=== PATIENT | male | born 1980 | race Two or more races ===

== ENCOUNTER 2016-11-24 16:00 | Emergency (ER) | payer BC ==
[2016-11-24 16:10] VITALS: BP 128/86
--- NOTE | 2016-11-24 16:41 | UC ---
Skin Complaint HPI - HPI Summary HPI Summary: LEFT (POPLITEAL FOSSA) KNEE WASP OR BEE STING. STIGER WAS REMOVED FROM SITE. INJURY BECAME RED AND SWOLLEN. NOW AREA IS GETTING WARM, SKIN TEXTURE IS BECOMING FIRMER, AND REDNESS IS SPREADING. NO HISTORY OF MRSA. NO FEVER. NO CALF PAIN OR SHORTNESS OF BREATH. - History of Current Complaint Chief Complaint: UCSkin Time Seen by Provider: 11/24/16 16:21 Stated Complaint: BUG BITE Hx Obtained From: Patient Onset/Duration: Sudden Onset, Lasting Days, Still Present Skin Exposure Onset/Duration: Days Ago Onset Severity: Mild Current Severity: Moderate Location: Discrete - LEFT POPLITEAL FOSSA Aggravating: Touch Alleviating: Nothing Associated Signs & Symptoms: Positive: Fever, Rash, Tenderness, Red Streaks Related History: Insect Bite/Sting, Possible Reaction to: Insect - Allergy/Home Medications Allergies/Adverse Reactions: Allergies Allergy/AdvReac Type Severity Reaction Status Date / Time Bee Venom Allergy Intermediate Swelling Verified 11/24/16 16:10 Review of Systems Constitutional: Negative Skin: Rash Eyes: Negative ENT: Negative Respiratory: Negative Cardiovascular: Negative Gastrointestinal: Negative Genitourinary: Negative Motor: Negative Neurovascular: Negative Musculoskeletal: Negative Neurological: Negative Psychological: Negative All Other Systems Reviewed And Are Negative: Yes PMH/Surg Hx/FS Hx/Imm Hx Previously Healthy: Yes - Surgical History Surgical History: None - Family History Known Family History: Negative: Blood Disorder - Social History Occupation: Employed Full-time Lives: With Family Alcohol Use: None Substance Use Type: None Smoking Status (MU): Never Smoked Tobacco Physical Exam Triage Information Reviewed: Yes Appearance: Well-Appearing, No Pain Distress, Well-Nourished Vital Signs: Initial Vital Signs Temp 98.1 F 11/24/16 16:07 Pulse 60 11/24/16 16:07 Resp 18 11/24/16 16:07 BP 128/86 11/24/16 16:07 Pulse Ox 100 11/24/16 16:07 Vital Signs Reviewed: Yes Eye Exam: Normal ENT Exam: Normal ENT: Positive: Normal ENT inspection, Hearing grossly normal, TMs normal Dental Exam: Normal Neck exam: Normal Neck: Positive: Supple, Nontender Respiratory Exam: Normal Respiratory: Positive: Chest non-tender, Lungs clear, Normal breath sounds, No respiratory distress, No accessory muscle use Cardiovascular Exam: Normal Cardiovascular: Positive: RRR, No Murmur, Pulses Normal Musculoskeletal Exam: Normal Musculoskeletal: Positive: Strength Intact, ROM Intact, No Edema, Other: - NO CALF TENDERNESS Neurological Exam: Normal Psychological Exam: Normal Skin: Positive: Other - 4 CM X 4CM ERYTHEMATOUS INDURATES CALOROUS AREA LEFT MEDIAL POPLITEAL FOSSA Course/Dx - Differential Diagnoses - Skin Complaint Differential Diagnoses: Cellulitis, Eczema, Local Allergic Reaction - Diagnoses Provider Diagnoses: CELLULITIS LEFT POPLITEAL FOSSA; INSECT STING Discharge - Discharge Plan Condition: Stable Disposition: HOME Prescriptions: Cephalexin CAP* [Keflex CAP*] 500 mg PO QID #40 cap Patient Education Materials: Cellulitis (ED), Insect Bite or Sting (ED) Referrals: Andi Berkowitz MD [Primary Care Provider] - Images Front/Back of Body, Lg ([place]): 1 - 4 CM X 4CM ERYTHEMATOUS INDURATES CALOROUS AREA LEFT MEDIAL POPLITEAL FOSSA
== END 2016-11-24 16:40 | disposition home or self-care (01) ==
LOC: UCEAST 16:00
DX: T63.441A Toxic effect of venom of bees, accidental (unintentional), initial encounter (principal); L03.116 Cellulitis of left lower limb; Y92.9 Unspecified place or not applicable
CPT/HCPCS: 99212; G0463